=== PATIENT | male | born 1960 | race American Indian/Alaskan Native ===

== ENCOUNTER 2020-10-14 10:37 | Emergency (ER) | payer MEDICAID, MEDICARE ==
--- NOTE | 2020-10-14 11:46 | Emergency Department Report ---
ED Extremity Problem HPI - General Chief complaint: Extremity Injury, Lower Stated complaint: L KNEE PAIN Time Seen by Provider: 10/14/20 11:16 Source: patient Mode of arrival: Ambulatory Limitations: No Limitations - History of Present Illness Initial comments: 59-year-old male with a past medical history of hypertension, and chronic low back pain status post laminectomy in 2019 presents to the ER today with complaints of left knee pain. Patient states that has been having pain mainly to the medial anterior aspect of his left knee for about 3 months but he states that over the course of 3 months he feels like it is getting worse. He states that there is a possibility he may have twisted his left knee while walking about 3 months ago. He states that this is his first time getting his knee checked out since the pain started 3 months ago. He also states that he recently started his part-time job where he is being on his feet more than usual . He states that the pain is worse with weightbearing and ambulation. He has been taking Aleve without much relief of the pain. He reports no other symptoms at this time. MD Complaint: joint swelling, joint paint - Related Data Previous Rx's Medication Instructions Recorded Last Taken Type Acetaminophen/Codeine [Tylenol 1 tab PO Q4HR PRN #12 tablet 10/14/20 Unknown Rx /Codeine # 3 tab] methylPREDNISolone [Medrol 4MG 4 mg PO DAILY #1 tab.ds.pk 10/14/20 Unknown Rx DOSEPAK (21 tabs)] Allergies Allergy/AdvReac Type Severity Reaction Status Date / Time No Known Allergies Allergy Unverified 10/14/20 10:59 ED Review of Systems ROS: Stated complaint: L KNEE PAIN Other details as noted in HPI Comment: All other systems reviewed and negative Constitutional: denies: chills, fever Eyes: denies: eye pain, eye discharge, vision change ENT: denies: ear pain, throat pain, dental pain, hearing loss, epistaxis, congestion Respiratory: denies: cough, shortness of breath, SOB with exertion, SOB at rest, wheezing Cardiovascular: denies: chest pain, palpitations Gastrointestinal: denies: abdominal pain, nausea, diarrhea, constipation, hematemesis, hematochezia Genitourinary: denies: urgency, dysuria, frequency, hematuria, discharge, testicular pain, testicular mass Musculoskeletal: joint swelling, arthralgia Skin: denies: rash, lesions Neurological: denies: headache, weakness, numbness, paresthesias, confusion, abnormal gait, vertigo Psychiatric: denies: anxiety, depression, auditory hallucinations, visual hallucinations, homicidal thoughts Hematological/Lymphatic: denies: easy bleeding, easy bruising, swollen glands ED Past Medical Hx - Past Medical History Previous Medical History?: Yes Hx Hypertension: Yes - Surgical History Past Surgical History?: Yes Additional Surgical History: back surgery - Medications Home Medications: Home Medications Medication Instructions Recorded Confirmed Last Taken Type Acetaminophen/Codeine [Tylenol 1 tab PO Q4HR PRN #12 tablet 10/14/20 Unknown Rx /Codeine # 3 tab] methylPREDNISolone [Medrol 4MG 4 mg PO DAILY #1 tab.ds.pk 10/14/20 Unknown Rx DOSEPAK (21 tabs)] ED Physical Exam - General Limitations: No Limitations General appearance: alert, in no apparent distress - Head Head exam: Present: atraumatic, normocephalic, normal inspection - Eye Eye exam: Present: normal appearance, PERRL, EOMI Pupils: Present: normal accommodation - ENT ENT exam: Present: normal exam, mucous membranes moist - Neck Neck exam: Present: normal inspection, full ROM - Respiratory Respiratory exam: Present: normal lung sounds bilaterally. Absent: respiratory distress, wheezes, rales, rhonchi - Cardiovascular Cardiovascular Exam: Present: regular rate, normal rhythm, normal heart sounds - GI/Abdominal GI/Abdominal exam: Present: soft. Absent: distended, tenderness, guarding, rebound - Extremities Exam Extremities exam: Present: joint swelling. Absent: calf tenderness - Expanded Lower Extremity Exam Left Knee exam: Present: tenderness (mainly medial aspect of left knee ), swelling (medial left knee ). Absent: full ROM (mild decrease flex due to pain; he is able to fully extend the knee.), abrasion, laceration, ecchymosis, deformity, crepidus, dislocation, erythema, effusion Neuro vascular tendon exam: Present: no vascular compromise Gait: Positive: observed and limited by pain (Mild limping gait due to pain in the knee. Patient ambulates with a cane) - Neurological Exam Neurological exam: Present: alert, oriented X3, CN II-XII intact - Psychiatric Psychiatric exam: Present: normal affect, normal mood - Skin Skin exam: Present: intact ED Course Vital Signs 10/14/20 10/14/20 11:01 13:10 Temperature 98.6 F Pulse Rate 75 70 Respiratory 22 Rate Blood Pressure 222/107 Blood Pressure 202/101 [Right] O2 Sat by Pulse 99 Oximetry ED Medical Decision Making - Radiology Data Radiology results: report reviewed Patient: EVELYNE DENIS MR#: [id number] : 1960 Acct:[id number] Age/Sex: 59 / M ADM Date: 10/14/20 Loc: ED Attending Dr: Ordering Physician: JUANITA AVITIA Date of Service: 10/14/20 Procedure(s): XR knee 3V LT Accession Number(s): [id number] cc: JUANITA AVITIA Fluoro Time In Minutes: LEFT KNEE 3 VIEWS INDICATION / CLINICAL INFORMATION: knee pain/swelling COMPARISON: None available. FINDINGS: BONES / JOINT(S): No acute fracture or subluxation. No significant arthritis. 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 SOFT TISSUES: There is a small amount of fluid in the suprapatella bursa. ADDITIONAL FINDINGS: None. Signer Name: Conor Fraser MD Signed: 10/14/2020 12:46 PM Workstation Name: [id number] Transcribed By: SS Dictated By: Conor Fraser MD Electronically Authenticated By: Conor Fraser MD Signed Date/Time: 10/14/20 1246 DD/ 1245 - Medical Decision Making 1315: Reviewed xray results - BONES / JOINT(S): No acute fracture or subluxation. No significant arthritis. 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 SOFT TISSUES: There is a small amount of fluid in the suprapatella bursa. Reviewed results with patient. Informed him that it is important that he follows up with [facility] listed on his d/c instructions for further eval and possible MRI of knee. Patient BP noted to be elevated during stay. He states that he take his blood pressure medications mainly at night and did take it last night. He currently has no symptoms related to his hypertension. Patient is not toxic, ill appearing and not in any severe distress. He is neurologically intact. Patient was stable at time of d/c. Critical care attestation.: If time is entered above; I have spent that time in minutes in the direct care of this critically ill patient, excluding procedure time. ED Disposition Clinical Impression: Left knee pain Disposition: DC- TO HOME OR SELFCARE Is pt being admited?: No Does the pt Need Aspirin: No Condition: Stable Instructions: Chronic Knee Pain, Adult Additional Instructions: Take the medrol dose pack and the tylenol 3 as prescribed. It is important that you follow up with [facility] listed on your discharge instructions. Return to ED if worse. Prescriptions: methylPREDNISolone [Medrol 4MG DOSEPAK (21 tabs)] 4 mg PO DAILY #1 tab.ds.pk Acetaminophen/Codeine [Tylenol /Codeine # 3 tab] 1 tab PO Q4HR PRN #12 tablet PRN Reason: Pain Referrals: MARIN ELAINE MD [Staff Physician] - 3-5 Days Forms: Work/School Release Form(ED) Time of Disposition: 13:03
--- NOTE | 2020-10-14 12:50 | XRay Report ---
LEFT KNEE 3 VIEWS INDICATION / CLINICAL INFORMATION: knee pain/swelling COMPARISON: None available. FINDINGS: BONES / JOINT(S): No acute fracture or subluxation. No significant arthritis. There are sclerotic les ions in the distal left femur and proximal tibia characteristic of bone infarcts. SOFT TISSUES: There is a small amount of fluid in the suprapatella bursa. ADDITIONAL FINDINGS: None. Signer Name: Conor Fraser MD Signed: 10/14/2020 12:46 PM Workstation Name: [email or web address]
[2020-10-14 13:12] VITALS: BP 202/101
== END 2020-10-14 13:15 | disposition home or self-care (01) ==
LOC: ED 10:37
DX: M25.562 Pain in left knee (principal); I10 Essential (primary) hypertension; Z98.890 Other specified postprocedural states; Z79.899 Other long term (current) drug therapy

== ENCOUNTER 2020-12-02 08:08 | Emergency (ER) | payer MEDICAID ==
[2020-12-02 08:30] VITALS: BP 190/91
[2020-12-02] MEDS ORDERED: IBUPROFEN 600 MG TAB PO ONE (09:28)
--- NOTE | 2020-12-02 10:06 | XRay Report ---
RIGHT ANKLE 2 VIEWS INDICATION / CLINICAL INFORMATION: felt achilles pop COMPARISON: None available. FINDINGS: BONES / JOINT(S): No acute fracture or subluxation. 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 SOFT TISSUES: Mild injection of the fat along the anterior aspect of the Achilles tendon. ADDITIONAL FINDINGS: None. Signer Name: Alexis Earl MD Signed: 12/02/2020 10:02 AM Workstation Name: [id number]
--- NOTE | 2020-12-02 10:15 | Emergency Department Report ---
ED Lower Extremity HPI - General Chief Complaint: Extremity Injury, Lower Stated Complaint: RT ANJKLE HEEL Time Seen by Provider: 12/02/20 08:58 Source: patient Mode of arrival: Ambulatory Limitations: No Limitations - History of Present Illness Initial Comments: 60-year-old -[place] male presents to the emergency room complaining of right foot and heel injury while playing basketball Wednesday night. Patient states that he heard his Achilles pop. Patient states is hard to walk. Patient reports he was recently seen here for his knee on the left side. Patient has a history of of hypertension and is compliant with his medication. Patient denies any head injury no loss of consciousness. MD Complaint: ankle injury Onset/Timin -: days(s) Injury: Ankle: Right Type of Injury: unknown Place: street/outdoors Severity scale (0 -10): 9 Improves With: immobilization Worsens With: weight bearing, movement, palpation Context: fall Associated Symptoms: snap/pop sensation, able to partially bear weight - Related Data Previous Rx's Medication Instructions Recorded Last Taken Type Acetaminophen/Codeine [Tylenol 1 tab PO Q4HR PRN #12 tablet 10/14/20 Unknown Rx /Codeine # 3 tab] methylPREDNISolone [Medrol 4MG 4 mg PO DAILY #1 tab.ds.pk 10/14/20 Unknown Rx DOSEPAK (21 tabs)] Ibuprofen [Motrin 800 MG tab] 800 mg PO Q8HR PRN #30 tablet 12/02/20 Unknown Rx traMADoL [Ultram 50 MG tab] 50 mg PO Q6HR PRN #15 tablet 12/02/20 Unknown Rx Allergies Allergy/AdvReac Type Severity Reaction Status Date / Time No Known Allergies Allergy Unverified 10/14/20 10:59 ED Review of Systems ROS: Stated complaint: RT ANJKLE HEEL Other details as noted in HPI Comment: All other systems reviewed and negative ED Past Medical Hx - Past Medical History Previous Medical History?: Yes Hx Hypertension: Yes - Surgical History Past Surgical History?: Yes Additional Surgical History: back surgery - Medications Home Medications: Home Medications Medication Instructions Recorded Confirmed Last Taken Type Acetaminophen/Codeine [Tylenol 1 tab PO Q4HR PRN #12 tablet 10/14/20 Unknown Rx /Codeine # 3 tab] methylPREDNISolone [Medrol 4MG 4 mg PO DAILY #1 tab.ds.pk 10/14/20 Unknown Rx DOSEPAK (21 tabs)] Ibuprofen [Motrin 800 MG tab] 800 mg PO Q8HR PRN #30 tablet 12/02/20 Unknown Rx traMADoL [Ultram 50 MG tab] 50 mg PO Q6HR PRN #15 tablet 12/02/20 Unknown Rx ED Physical Exam - General Limitations: No Limitations General appearance: alert, in no apparent distress - Head Head exam: Present: atraumatic, normocephalic - Eye Eye exam: Present: normal appearance - ENT ENT exam: Present: mucous membranes moist - Neck Neck exam: Present: normal inspection - Respiratory Respiratory exam: Absent: accessory muscle use - Cardiovascular Cardiovascular Exam: Present: regular rate - Expanded Lower Extremity Exam Right Hip exam: Present: full ROM Upper Leg exam: Present: normal inspection Knee exam: Present: normal inspection Lower Leg exam: Present: full ROM. Absent: deformity, crepidus, erythema Ankle exam: Present: full ROM (Able to dorsiflex and extend), tenderness (Achilles, lateral malleolus), swelling (Lateral malleolus). Absent: deformity Foot/Toe exam: Absent: tenderness, swelling Neuro vascular tendon exam: Present: no vascular compromise Gait: Positive: observed and limited by pain - Back Exam Back exam: Present: normal inspection - Neurological Exam Neurological exam: Present: alert, oriented X3 - Psychiatric Psychiatric exam: Present: normal affect, normal mood - Skin Skin exam: Present: warm, dry, intact, normal color. Absent: rash ED Course Vital Signs 12/02/20 08:29 Temperature 98.5 F Pulse Rate 69 Respiratory 18 Rate Blood Pressure 190/91 O2 Sat by Pulse 99 Oximetry ED Lower Extremity MDM - Radiology Data Radiology results: report reviewed [address] [address] XRay Report Signed Patient: EVELYNE DENIS MR#: [id number] : 1960 Acct:[id number] Age/Sex: 60 / M ADM Date: 12/02/20 Loc: ED Attending Dr: Ordering Physician: ROSA ROSARIO Date of Service: 12/02/20 Procedure(s): XR ankle 2V RT Accession Number(s): [id number] cc: ROSA ROSARIO Fluoro Time In Minutes: RIGHT ANKLE 2 VIEWS INDICATION / CLINICAL INFORMATION: felt achilles pop COMPARISON: None available. FINDINGS: BONES / JOINT(S): No acute fracture or subluxation. 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 SOFT TISSUES: Mild injection of the fat along the anterior aspect of the Achilles tendon. ADDITIONAL FINDINGS: None. Signer Name: Alexis Earl MD Signed: 12/02/2020 10:02 AM Workstation Name: [id number] Transcribed By: ES Dictated By: Alexis Earl MD Electronically Authenticated By: Alexis Earl MD Signed Date/Time: 12/02/20 1002 DD/ 1000 TD/TT: Print Cancel - Medical Decision Making 60-year-old -[place] male presents to the emergency room complaining of right foot and heel injury while playing basketball Wednesday. Patient states that he heard his Achilles pop. Patient states is hard to walk. Patient reports he was recently seen here for his knee on the left side. Patient has a history of of hypertension and is compliant with his medication. Patient denies any head injury no loss of consciousness. X-ray of right ankle shows no fracture dislocation it does show Mild injection of the fat along the anterior aspect of the Achilles tendon. Patient will be placed in a posterior splint of his right lower extremity and on crutches given a prescription for ibuprofen and tramadol. Patient is to follow-up with Dr. Edwards orthopedic provider. Patient is encouraged to continue with his chronic blood pressure medication. Critical care attestation.: If time is entered above; I have spent that time in minutes in the direct care of this critically ill patient, excluding procedure time. ED Disposition Clinical Impression: Hypertension Achilles tendon injury Qualifiers: Encounter type: initial encounter Laterality: right Qualified Code(s): S86.001A - Unspecified injury of right Achilles tendon, initial encounter Disposition: - TO HOME OR SELFCARE Is pt being admited?: No Does the pt Need Aspirin: No Condition: Stable Instructions: Hypertension (ED), Managing Your Hypertension, Achilles Tendon Tear Additional Instructions: Recommend keeping the splint on take your pain medication use your crutches and follow-up with Dr. Edwards this week. Also I recommend to continue with your chronic hypertensive medicine. Follow-up with a primary care provider. Prescriptions: Ibuprofen [Motrin 800 MG tab] 800 mg PO Q8HR PRN #30 tablet PRN Reason: Pain , Severe (7-10) traMADoL [Ultram 50 MG tab] 50 mg PO Q6HR PRN #15 tablet PRN Reason: Pain Referrals: PRIMARY CARE, [Primary Care Provider] - 3-5 Days MARIN EDWARDS MD [Staff Physician] - 3-5 Days ASHWIN HORVATH MD [Staff Physician] - 3-5 Days
== END 2020-12-02 11:25 | disposition home or self-care (01) ==
LOC: ED 08:08
DX: S86.001A Unspecified injury of right Achilles tendon, initial encounter (principal); I10 Essential (primary) hypertension; Z98.890 Other specified postprocedural states; X58.XXXA Exposure to other specified factors, initial encounter; Y93.67 Activity, basketball; Y92.488 Other paved roadways as the place of occurrence of the external cause; Y99.8 Other external cause status
CPT/HCPCS: 99283

== ENCOUNTER 2021-03-05 14:59 | Emergency (ER) | payer MEDICAID, MEDICARE ==
[2021-03-05] MEDS ORDERED: oxyCODONE /ACETAMINOPHEN 5-325MG TAB PO ONE (16:36)
--- NOTE | 2021-03-05 16:38 | Emergency Department Report ---
ED Back Pain/Injury HPI - General Chief Complaint: Back Pain/Injury Stated Complaint: BACK PAIN Time Seen by Provider: 03/05/21 16:09 Source: patient Limitations: No Limitations - History of Present Illness Initial Comments: 60-year-old male with a past medical history of chronic low back pain, status post laminectomy and fusion in 2019 of the lumbar spine presents to the ER today with complaints of increased low back pain. 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 He states that immediately after the pain flared up, and radiated into his hips and down into his right leg. He states that the pain is worse when he moves from a si tting to a standing position. He denies any bowel or bladder incontinence, saddle anesthesia, lower extremity numbness, tingling or weakness. Patient states that after his laminectomy and spinal fusion, he was following up with pain management and was on chronic pain medication and getting injections in his low back off and on which overall controlled his pain but he states that this was when he lived in [place]. He states that when he moved here initially he was having difficulty with his medical insurance, but as of March 01, his insurance for [place] has been activated but he is currently waiting for his PCP to refer him to tooling specialist as well as pain management. Patient states that he has been taking prescription Tylenol as well as tizanidine which was prescribed to him when he was seen here a few months ago for his back pain. He states that he took it today without much relief. He reports no additional symptoms at this time. Complaint: back pain, back injury -: This morning - Related Data Previous Rx's Medication Instructions Recorded Last Taken Type HYDROcodone/APAP 5-325 [[place] 1 each PO Q6HR PRN #12 tablet 03/05/21 Unknown Rx 5/325] Ketorolac [Toradol] 10 mg PO Q6H PRN #20 tablet 03/05/21 Unknown Rx Lidocaine [Lidoderm] 1 each TP Q12H #10 adh..patch 03/05/21 Unknown Rx Allergies Allergy/AdvReac Type Severity Reaction Status Date / Time No Known Allergies Allergy Unverified 10/14/20 10:59 ED Review of Systems ROS: Stated complaint: BACK PAIN Other details as noted in HPI ED Past Medical Hx - Past Medical History Previous Medical History?: Yes Hx Hypertension: Yes - Surgical History Past Surgical History?: Yes Additional Surgical History: back surgery - Medications Home Medications: Home Medications Medication Instructions Recorded Confirmed Last Taken Type HYDROcodone/APAP 5-325 [[place] 1 each PO Q6HR PRN #12 tablet 03/05/21 Unknown Rx 5/325] Ketorolac [Toradol] 10 mg PO Q6H PRN #20 tablet 03/05/21 Unknown Rx Lidocaine [Lidoderm] 1 each TP Q12H #10 adh..patch 03/05/21 Unknown Rx ED Physical Exam - General Limitations: No Limitations General appearance: alert, in distress (mild, secondary to pain ) - Head Head exam: Present: atraumatic, normocephalic, normal inspection - Neck Neck exam: Present: normal inspection, full ROM - Respiratory Respiratory exam: Present: normal lung sounds bilaterally. Absent: respiratory distress, wheezes, rales, rhonchi - Cardiovascular Cardiovascular Exam: Present: regular rate, normal rhythm, normal heart sounds - GI/Abdominal GI/Abdominal exam: Present: soft. Absent: distended, tenderness, guarding, rebound - Back Exam Back exam: Present: paraspinal tenderness (mid lumbar ), vertebral tenderness (mid lumbar ), other (healed surgical scar noted lumbar area; ). Absent: full ROM (decrease due to pain ) - Neurological Exam Neurological exam: Present: alert, oriented X3, CN II-XII intact, other (sensation normal bilateral LE, strength 5/5 bilateral LE, patient uses a walker to help you ambulate, his gait is slow but otherwise normal). Absent: motor sensory deficit - Psychiatric Psychiatric exam: Present: normal affect, normal mood ED Course Vital Signs 03/05/21 03/05/21 15:20 19:26 Temperature 98 F 98.0 F Pulse Rate 78 60 Respiratory 16 18 Rate Blood Pressure 196/87 200/90 [Left] O2 Sat by Pulse 100 98 Oximetry ED Medical Decision Making - Radiology Data Radiology results: report reviewed Patient: EVELYNE DENIS MR#: [id number] : 1960 Acct:[id number] Age/Sex: 60 / M ADM Date: 03/05/21 Loc: ED Attending Dr: Ordering Physician: JUANITA AVITIA Date of Service: 03/05/21 Procedure(s): CT lumbar spine wo con Accession Number(s): [id number] cc: JUANITA Ashleigh SADI CT LUMBAR SPINE WITHOUT CONTRAST HISTORY: Back pain COMPARISON: None TECHNIQUE: CT images of the lumbar spine were obtained without contrast. Sagittal and coronal reformats were post-processed.All CT scans at this location are performed using CT dose reduction for ALARA by means of automated exposure control. CONTRAST: None. FINDINGS: Alignment: Normal. No traumatic subluxation. Vertebrae:No significant abnormality. No fracture. Disc Spaces: T10-T11: Mild facet joint hypertrophic changes on the left; neuroforamina are normal T11-T12: Bridging osteophytes laterally bilaterally; mild facet joint hypertrophic changes more on the right side; nonlateralizing bulging disc; neuroforamina are normal T12-L1: Normal L1-L2: Normal L2-L3: Bulging disc; neuroforamina are normal L3-L4: Moderate ligamentous hypertrophy posteriorly; broad-based disc bulge; mild foraminal stenoses L4-L5: Anterior and posterior lumbar interbody fusion; disc spacer recessed towards right side; unable to confirm osseous integration; right L5 pedicle screw along the superior endplate L5-S1: Normal Additional Findings: None IMPRESSION: L4-L5: Anterior and posterior lumbar interbody fusion; laminectomy; unable to confirm osseous integration L3-L4: Broad-based disc bulge; moderate ligamentous hypertrophy; mild foraminal stenoses Signer Name: Edvin Tompkins MD Signed: 03/05/2021 5:38 PM Workstation Name: [id number] Transcribed By: BS Dictated By: Edvin Washington MD Electronically Authenticated By: Edvin Washington MD Signed Date/Time: 03/05/211737 DD/ 29 TD/TT: - Medical Decision Making The patient presented with worsening back pain after 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 CT of the lumbar spine shows nothing acute. The patient is resting comfortably and , is alert, talkative, interact stef and in no distress. The patient is neurologically intact and is ambulatory in the ED. the patient has no fever, no bowel or bladder incontinence, no saddle anesthesia and is otherwise alert and well-appearing. His history, physical examination and diagnostic testing does not suggest the presence of acute spinal epidural abscess, acute epidural bleed, cauda equina syndrome, abdominal/thoracic aortic aneurysm, aortic dissection or other acute process requiring further testing, treatment or consultation in the emergency department. Discussed imaging results with patient. Suspect muscle s train/spasm at this time. Patient will be given referral information to orthospine specialist, and I recommended that he keep his appointment with his PCP for referral to pain management. Patient blood pressure was noted to be elevated during stay, but he admits that he has not taken his blood pressure medication today. Patient currently has no symptoms related to his elevated blood pressure. There is no concern for endorgan damage at this time. Patient expressed understanding of all instructions and agree with plan. The patient condition is stable and appropriate for discharge. The patient will pursue further outpatient evaluation with the primary care physician or other designated or consulting physician as indicated in the discharge instructions. Critical care attestation.: If time is entered above; I have spent that time in minutes in the direct care of this critically ill patient, excluding procedure time. ED Disposition Clinical Impression: Acute exacerbation of chronic low back pain, Lumbar strain Disposition: HOME / SELF CARE / HOMELESS Is pt being admited?: No Does the pt Need Aspirin: No Condition: Stable Instructions: Lumbosacral Strain, Chronic Back Pain, [id number] Additional Instructions: I recommend continuing the tizinadine, and start taking the toradol and the hydrocodone for additional pain control. Use the Lidoderm patches as prescribed to help with pain. Recommend that you do not take Tylenol while taking the hydrocodone. Do recommend following up with a primary care doctor for referral to paint specialist as well orthospine specialist but I will also list local primary care doctors for you to follow-up with as well as an orthospine specialist for follow-up. Return to the ER if your symptoms changes or worsens in anyway. Prescriptions: Lidocaine [Lidoderm] 1 each TP Q12H #10 adh..patch HYDROcodone/APAP 5-325 [[place] 5/325] 1 each PO Q6HR PRN #12 tablet PRN Reason: Pain Ketorolac [Toradol] 10 mg PO Q6H PRN #20 tablet PRN Reason: Pain Referrals: ASHWIN HORVATH MD [Staff Physician] - 3-5 Days [facility] [Provider Group] - 3-5 Days ( [address] [place] [address] [address], [place] [address] ) Time of Disposition: 18:32 Print Language: NEPALESE
--- NOTE | 2021-03-05 17:42 | Cat Scan Report ---
CT LUMBAR SPINE WITHOUT CONTRAST HISTORY: Back pain COMPARISON: None TECHNIQUE: CT images of the lumbar spine were obtained without contrast. Sagittal and coronal reform ats were post-processed.All CT scans at this location are performed using CT dose reduction for ALARA by means of automated exposure control. CONTRAST: None. FINDINGS: Alignment: Normal. No traumatic subluxation. Vertebrae:No significant abnormality. No fracture. Disc Spaces: T10-T11: Mild facet joint hypertrophic changes on the left; neuroforamina are normal T11-T12: Bridging osteophytes laterally bilaterally; mild facet joint hypertrophic changes more on th e right side; nonlateralizing bulging disc; neuroforamina are normal T12-L1: Normal L1-L2: Normal L2-L3: Bulging disc; neuroforamina are normal L3-L4: Moderate ligamentous hypertrophy posteriorly; broad-based disc bulge; mild foraminal stenoses L4-L5: Anterior and posterior lumbar interbody fusion; disc spacer recessed towards right side; unabl e to confirm osseous integration; right L5 pedicle screw along the superior endplate L5-S1: Normal Additional Findings: None IMPRESSION: L4-L5: Anterior and posterior lumbar interbody fusion; laminectomy; unable to confirm osseous integr ation L3-L4: Broad-based disc bulge; moderate ligamentous hypertrophy; mild foraminal stenoses Signer Name: Edvin Tompkins MD Signed: 03/05/2021 5:38 PM Workstation Name: [id number]
[2021-03-05 20:24] VITALS: BP 200/90
== END 2021-03-05 19:55 | disposition home or self-care (01) ==
LOC: ED 14:59
DX: S39.012A Strain of muscle, fascia and tendon of lower back, initial encounter (principal); I10 Essential (primary) hypertension; X50.9XXA Other and unspecified overexertion or strenuous movements or postures, initial encounter; X50.0XXA Overexertion from strenuous movement or load, initial encounter; Y93.89 Activity, other specified; Y92.89 Other specified places as the place of occurrence of the external cause; Y99.8 Other external cause status
CPT/HCPCS: 72131; 99283

== ENCOUNTER 2021-11-04 10:59 | Emergency (ER) | payer MEDICARE ==
--- NOTE | 2021-11-04 14:52 | XRay Report ---
LEFT SHOULDER 3 VIEW(S) INDICATION / CLINICAL INFORMATION: shoulder injury. COMPARISON: None available. FINDINGS: BONES / JOINT(S): No acute fracture or subluxation. There is mild AC joint degenerative change. SOFT TISSUES: No significant abnormality. ADDITIONAL FINDINGS: None. IMPRESSION: 1. No acute findings. There is mild AC joint degenerative change. Signer Name: Conor Fraser MD Signed: 11/04/2021 2:48 PM Workstation Name: [id number]
--- NOTE | 2021-11-04 14:53 | XRay Report ---
LEFT FOREARM 2 VIEW(S) INDICATION / CLINICAL INFORMATION: injury COMPARISON: None available. FINDINGS: BONES / JOINT(S): No acute fracture or subluxation. No significant arthritis. SOFT TISSUES: No significant abnormality. ADDITIONAL FINDINGS: None. IMPRESSION: 1. No acute findings. Signer Name: Conor Fraser MD Signed: 11/04/2021 2:49 PM Workstation Name: [id number]
[2021-11-04] MEDS ORDERED: IBUPROFEN 800 MG TAB PO ONE (15:00)
[2021-11-04] MEDS ORDERED: HYDROcodone/ACETAMINOPHEN 5-325 MG TAB PO ONE (15:00)
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
[2021-11-04] MEDS ORDERED: cloNIDine 0.1 MG TAB PO ONE (15:10)
[2021-11-04 18:04] VITALS: BP 142/82
== END 2021-11-04 18:03 | disposition home or self-care (01) ==
LOC: ED 10:59
DX: S40.022A Contusion of left upper arm, initial encounter (principal); I10 Essential (primary) hypertension; W19.XXXA Unspecified fall, initial encounter; Y93.89 Activity, other specified; Y92.89 Other specified places as the place of occurrence of the external cause; Y99.8 Other external cause status
CPT/HCPCS: 99283